=== PATIENT | male | born 1985 | race Caucasian/White ===

== ENCOUNTER 2020-08-30 20:57 | Emergency (ER) | payer BC, MEDICAID ==
[2020-08-30] MEDS ORDERED: Sodium Chloride 0.9% 10 ML Syringe FLUSH PRN (21:27)
[2020-08-30 21:42] LABS: BARBITURATE SCREEN,URINE NEGATIVE (NEGATIVE); BENZODIAZEPINES SCREEN,URINE NEGATIVE (NEGATIVE); EDDP,URINE SCREEN NEGATIVE (NEGATIVE); METHAMPHETAMINE SCREEN, URINE NEGATIVE (NEGATIVE); TCA SCREEN,URINE NEGATIVE (NEGATIVE); THC SCREEN,URINE 50 NG/ML NEGATIVE (NEGATIVE)
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
[2020-08-30] MEDS ORDERED: Lactated Ringers 1,000 ML IV ONE (21:57)
[2020-08-30] MEDS ORDERED: Ketamine 200 MG/20 ML MDV IM ONE (21:58)
[2020-08-30 22:00] LABS: CHLORIDE,CL 100 mmol/L (98-107); SODIUM,NA 142 mmol/L (136-145)
[2020-08-30 22:01] LABS: ACETAMINOPHEN 0 ug/ml (10-30); ANION GAP 24.1 mmol/L (5-15)
[2020-08-30] MEDS: Haloperidol Lactate 5 MG/ML SDV IV ONE ×2 (22:05→22:14)
--- NOTE | 2020-08-30 22:09 | PCM.EKG ---
#1 Interpretation EKG Date: 08/30/20 Time: 21:55 Rhythm: NSR Rate (Beats/Min): 124 [place]: Normal P-Wave: Present QRS: Normal ST-T: Normal QT: Normal Comparison: NA - No Prior EKG
[2020-08-30] MEDS ORDERED: Haloperidol Lactate 5 MG/ML SDV IV ONE ×2 (22:12→22:26)
[2020-08-30] MEDS ORDERED: Haloperidol Lactate 5 MG/ML SDV ONE (22:15)
== END 2020-08-31 07:05 | disposition home or self-care (01) ==
LOC: VM.ED 20:57
DX: F10.921 Alcohol use, unspecified with intoxication delirium (principal); R45.1 Restlessness and agitation; Y90.8 Blood alcohol level of 240 mg/100 ml or more
CPT/HCPCS: 51702; 80053; 80143; 80179; 80305-QW; 80307; 81003; 83735; 85025; 93005; 93010; 96372; 96374; 99284; 99285-25; J1630; J7120